=== PATIENT | female | born 1975 | race Caucasian/White ===

== ENCOUNTER 2016-04-07 12:30 | Emergency (ER) | payer MEDICAID ==
[2016-04-07 12:46] VITALS: BP 130/86; PULSE 73; RESP 16; TEMP 98.4; O2SAT 99
--- NOTE | 2016-04-07 13:01 | EDPHY ---
H & P Time Seen by Provider: 04/07/16 12:57 HPI/ROS: CHIEF COMPLAINT: Left ear pain, sore throat. HISTORY OF PRESENT ILLNESS: This is a 40-year-old female presenting with 2 days of left ear pain and sore throat. The throat swelling is moderate and is causing difficulty swallowing. Associated with mild left ear pain and mild cough. No rhinorrhea, wheezing, chills, myalgia, or known fever. She denies known sick contact. REVIEW OF SYSTEMS: A complete 10-point review of systems was performed and is negative except for those items mentioned in the HPI. Past Medical/Surgical History: Ovarian cyst, hypothyroidism. Social History: Smoker. Smoking Status: Current every day smoker Physical Exam: General Appearance: Alert, nontoxic-appearing Eyes: Pupils equal and round, no conjunctival injection ENT, Mouth: Mucous membranes moist. Pharyngeal erythema, left greater than right. Exudate on left tonsil, no fluctuance. Uvula edematous. Tympanic membranes normal Neck: Bilateral shotty adenopathy. Respiratory: Lungs are clear to auscultation Cardiovascular: Regular rate and rhythm Neurological: A&O, nonfocal, normal gait Skin: Warm and dry, no rash Psychiatric: Mood and affect normal Constitutional: Initial Vital Signs Temperature (C) 36.9 C 04/07/16 12:35 Heart Rate 73 04/07/16 12:35 Respiratory Rate 16 04/07/16 12:35 Blood Pressure 130/86 H 04/07/16 12:35 O2 Sat (%) 99 04/07/16 12:35 O2 Delivery Mode Room Air Allergies/Adverse Reactions: Sulfa (Sulfonamide Antibiotics) Allergy (Severe, Verified 04/07/16 12:46) thorat closes up Home Medications: Medication Instructions Recorded Hydrocodone/APAP 5/325 [Gamerco 1 - 2 tab PO Q4H PRN #10 tab 04/07/16 5/325] Penicillin V Potassium 500 mg PO BID #20 tablet 04/07/16 Medical Decision Making ED Course/Re-evaluation: Clinical presentation consistent with strep pharyngitis. No evidence of peritonsillar abscess or otitis media. She will be placed on an antibiotic and a steroid and discharged home. - Data Points Medications Given: Discontinued Medications Dexamethasone (Decadron) 4 mg PO EDNOW ONE Stop: 04/07/16 13:19 Last Admin: 04/07/16 13:27 Dose: 4 mg Departure - Departure Disposition: Home, Routine, Self-Care Clinical Impression: Pharyngitis Qualifiers: Pharyngitis/tonsillitis etiology: unspecified etiology Qualified Code(s): J02.9 - Acute pharyngitis, unspecified Instructions: Pharyngitis (ED) Additional Instructions: Take the antibiotic as prescribed. Take 600mg Ibuprofen 3 times daily for pain and fever. Try saltwater gargles. Drink plenty of clear fluids. Call Dr. Blanton in the next 3-4 days to set up a follow up appointment if symptoms are not improving. Return to the emergency department for any serious worsening of condition. Referrals: Syed Blanton MD [Primary Care Provider] - As per Instructions Prescriptions: Hydrocodone/APAP 5/325 [Gamerco 5/325] 1 - 2 tab PO Q4H PRN #10 tab PRN Reason: Pain, Moderate Penicillin V Potassium 500 mg PO BID #20 tablet Report Scribed for: Geovanna Pitt Report Scribed by: Carlos Adamson Date of Report: 04/07/16 Time of Report: 13:00 Physician Review and Approval Statement: 04/07/16 13:01 Portions of this note were transcribed by a medical office secretary. I personally performed a history, physical exam, medical decision making, and confirmed accuracy of information the transcribed note.
[2016-04-07] MEDS ORDERED: DEXAMETHASONE 4 MG TAB PO ONE (13:18)
== END 2016-04-07 13:28 | disposition home or self-care (01) ==
DX: J02.9 Acute pharyngitis, unspecified (principal); F17.200 Nicotine dependence, unspecified, uncomplicated